=== PATIENT | female | born 1975 | race Two or more races ===

== ENCOUNTER 2024-10-15 03:45 | Emergency (ER) | payer OTHER ==
[~2024-10-15] VITALS: Ht 160 cm; Wt 62.1 kg
[2024-10-15] MEDS ORDERED: QULIPTA10 MG (04:04)
[2024-10-15 04:05] VITALS: BP 144/91; O2SAT 100
[2024-10-15] MEDS ORDERED: PROMETHAZINE HCL 50 MG/ML AMPUL IM STA (04:20)
[2024-10-15] MEDS ORDERED: KETOROLAC TROMETHAMINE 30 MG VIAL IV STA (04:21)
[2024-10-15] MEDS ORDERED: TAMSULOSIN HCL 0.4 MG CAP PO STA (04:22)
[2024-10-15] MEDS ORDERED: SODIUM CHLORIDE 0.45 % 1,000 ML IV ONE (04:30)
[2024-10-15] MEDS ORDERED: PROMETHAZINE HCL 50 MG/ML AMPUL IM ONE (04:38)
[2024-10-15] MEDS ORDERED: KETOROLAC TROMETHAMINE 30 MG VIAL ONE (04:38)
[2024-10-15] MEDS ORDERED: TAMSULOSIN HCL 0.4 MG CAP PO ONE (04:38)
[2024-10-15 05:05] LABS: CREATININE SERUM 0.95 mg/dL (0.55-1.02); GFR 62.02; POTASSIUM 3.38 mEq/L (3.5-5.1)
[2024-10-15 05:33] LABS: HEMATOCRIT 34.2 % (36.0-45.00); HEMOGLOBIN 11.1 g/dL (12.0-15.00); MEAN CELL VOLUME 70.7 fL (80.00-100.00); MEAN CORPUSCULAR HGB CONC 32.5 g/dl (32.0-36.0); PLATELET COUNT 359 K/uL (150-450); RED BLOOD COUNT 4.84 M/uL (4.00-6.00); RED CELL DISTRIBUTION WIDTH 15.4 % (11.5-14.5)
[2024-10-15 07:02] LABS: PH,URINE 7.5 (5.0-8.0); URINE APPEARANCE Clear; URINE BILIRRUBIN Negative (NEGATIVE); URINE BLOOD Negative; URINE COLOR Yellow; URINE GLUCOSE Negative (NEGATIVE); URINE KETONE Negative (NEGATIVE); URINE LEUKOCYTE Negative; URINE NITRATE Negative; URINE PROTEIN Negative (NEGATIVE); URINE UROBILINOGEN 0.2 E.U./dl
[2024-10-15 07:03] LABS: URINE BACTERIA 78.2 uL (0.0-1933); URINE EPITHELIAL CELLS 1.4 uL (0.0-38.8); URINE WBC 3.6 uL (0.0-23.2)
[2024-10-15 07:08] LABS: URINE CAST 0.14 uL (0.0-1.40)
[2024-10-15] MEDS ORDERED: KETO10TA2 PO (08:05)
[2024-10-15] MEDS ORDERED: TAMS0.4C PO (08:05)
== END 2024-10-15 08:16 ==
LOC: ER 03:48
PROVIDERS: General Practice
DX: N20.0 Calculus of kidney (principal); Z91.041 Radiographic dye allergy status; Z88.8 Allergy status to other drugs, medicaments and biological substances; Z87.442 Personal history of urinary calculi
CPT/HCPCS: 36415; 74176; 96365; 96372; 99284; J1885; J2250